=== PATIENT | female | born 1985 | race Caucasian/White ===

== ENCOUNTER 2020-05-19 10:18 | Emergency (ER) | payer OTHER ==
[~2020-05-19] VITALS: Ht 167.6 cm; Wt 56.2 kg
[2020-05-19] MEDS ORDERED: DOTTI1 EAC1 TD (10:32)
== END 2020-05-19 17:52 | disposition home or self-care (01) ==
LOC: ER 10:18
DX: O20.8 Other hemorrhage in early pregnancy (principal); O43.891 Other placental disorders, first trimester; Z3A.01 Less than 8 weeks gestation of pregnancy

== ENCOUNTER 2020-10-02 09:49 | Outpatient (CLI) | payer OTHER ==
[~2020-10-02 09:49] MED LIST: DOTTI1 EAC1 TD
== END 2020-10-02 10:59 | disposition home or self-care (01) ==
LOC: NST 09:49
PROVIDERS: ATTEND Obstetrics & Gynecology
DX: Z34.82 Encounter for supervision of other normal pregnancy, second trimester (principal)

== ENCOUNTER 2020-12-17 13:30 | Inpatient (IN) | payer OTHER ==
[~2020-12-17] VITALS: Ht 167.6 cm; Wt 73.5 kg
[2021-01-02] MEDS ORDERED: PRENATAL TABLE1 EAC1 PO (10:56)
[2021-01-02] MEDS ORDERED: VITAMINA C PO (10:57)
[2021-01-02] MEDS ORDERED: VITAMIN C100 MG (11:45)
== END 2021-01-04 12:25 | disposition home or self-care (01) | DRG 807 ==
LOC: LDR 01-02 09:59 → SURG-SUITE 01-02 09:59 → LDR 01-08 13:30
PROVIDERS: ADMIT Obstetrics & Gynecology; ATTEND Obstetrics & Gynecology
PROC: 10E0XZZ Delivery of Products of Conception, External Approach (ICD-10-PCS; principal; 2021-01-02)
PROC: 4A1HXFZ Monitoring of Products of Conception, Cardiac Rhythm, External Approach (ICD-10-PCS; 2021-01-02)
DX: O80 Encounter for full-term uncomplicated delivery (principal); Z37.0 Single live birth; Z3A.39 39 weeks gestation of pregnancy; Z20.822 Contact with and (suspected) exposure to COVID-19

== ENCOUNTER 2021-01-01 08:26 | Outpatient (CLI) | payer OTHER ==
[2021-01-02] MEDS ORDERED: PRENATAL TABLE1 EAC1 PO (10:56)
[2021-01-02] MEDS ORDERED: VITAMINA C PO (10:57)
[2021-01-02] MEDS ORDERED: VITAMIN C100 MG (11:45)
== END 2021-01-01 09:00 | disposition home or self-care (01) ==
LOC: NST 08:26
PROVIDERS: ATTEND Obstetrics & Gynecology
DX: Z34.83 Encounter for supervision of other normal pregnancy, third trimester (principal)